=== PATIENT | female | born 1965 ===

== ENCOUNTER 2019-05-18 12:08 | Outpatient (REF) | payer MEDICAID, SELFPAY ==
[2019-05-18 13:46] LABS: PROTEIN 7.5 mg/dL
[2019-05-18 13:49] LABS: COMMENT (LAB VIEW ONLY) 39.51 mg/dL; Microalb ug/mg Crea 13.4 ug/mg Cr
[2019-05-18 14:00] LABS: COMMENT (LAB VIEW ONLY) 40.09 mg/dL; Prot/Crea Ur Ratio 0.18
== END 2019-05-18 12:28 ==
LOC: NCHCN 12:08
PROVIDERS: Visit Provider Nurse Practitioner Family
DX: E11.9 Type 2 diabetes mellitus without complications (principal)
CPT/HCPCS: 82043; 82565; 82570; 84156

== ENCOUNTER 2019-07-23 11:44 | Outpatient (REF) | payer MEDICAID, SELFPAY ==
[2019-07-23 16:39] LABS: Abs Immature Grans 0.02 k/cumm (0.0-0.09); Absolute Basophil Count 0.02 k/cumm (0.0-0.2); Absolute Eosinophil Count 0.08 k/cumm (0.0-0.7); Absolute Lymphocyte Count 0.94 k/cumm (1.2-3.4); Absolute Monocyte Count 0.67 k/cumm (0.11-0.7); Absolute Neutrophil Count 4.33 k/cumm (1.2-6.7); Basophils % 0.3; Eosinophils % 1.3; HCT 41.1 % (36.0-46.0); Immature Grans % 0.3 %; Lymphocytes % 15.5; Mean Corp. HGB Concentration 34.1 g/dL (32.0-36.0); Mean Corpuscular Volume 88.2 fL (80-95); Mean Platelet Volume 10.2 fL (8.0-11.0); Monocytes % 11.1; Neutrophils % 71.5; Platelet Count 318 x1000/uL (130-400); RBC 4.66 m/cumm (4.00-5.20); White Blood Cell Count 6.06 k/cumm (4.4-10.8)
[2019-07-23 16:49] LABS: Iron 42 ug/dL (50-170); Total Iron Binding Capacity 362 ug/dL (250-450); Transferrin Sat 12 % (15-50)
[2019-07-23 16:54] LABS: Hemoglobin A1C 9.7 % (3.8-5.6)
[2019-07-23 17:08] LABS: D-Dimer 496 ng/mlFEU (<500)
[2019-07-23 17:24] LABS: ALT 28 U/L (14-59); AST 18 U/L (15-37); Albumin 3.8 g/dL (3.4-5.0); Alkaline Phosphatase 118 U/L (46-116); Anion Gap 10.5 mmol/L (3-11); BUN 14 mg/dL (7-18); Bilirubin, Total 0.4 mg/dL (0.2-1.0); CO2 25.5 mmol/L (21.0-32.0); CREATININE 0.83 mg/dL (0.55-1.02); Calculated LDL 192 mg/dL (<100); Chloride 100 mmol/L (98-107); Cholesterol 291 mg/dL (<200); Ferritin 26 ng/mL (8-252); Folate 6.5 ng/mL (8.6-20.0); Glucose 258 mg/dL (74-106); HDL Cholesterol 58 mg/dL (40-60); Potassium 4.2 mmol/L (3.5-5.1); Sodium 136 mmol/L (136-145); TSH (W/Ref FT4) 0.79 uIU/mL (0.36-3.74); Total Protein 7.3 g/dL (6.4-8.2); Triglyceride 206 mg/dL (<150); Vitamin B12 204 pg/mL (193-986)
[2019-07-23 19:20] LABS: C-Reactive Protein 0.28 mg/dL (0.0-0.3)
[2019-07-23 22:52] LABS: Rheumatoid Factor <8.6 IU/mL (<12.0)
[2019-07-26 11:37] LABS: HIV-1/2 Ag & Ab Screen Negative (Negative); Hepatitis C Ab w Rflx HCV PCR Negative (Negative)
[2019-07-26 12:47] LABS: Parathyroid Hormone,Intact 103 pg/mL (19-88)
[2019-07-29 08:55] LABS: Free Retinol (Vitamin A) 39.3 mcg/dL (32.5-78.0)
== END 2019-07-23 12:04 ==
LOC: NCHCN 11:44
PROVIDERS: PCP Nurse Practitioner Family; Visit Provider Nurse Practitioner Family
DX: M60.9 Myositis, unspecified (principal); M79.89 Other specified soft tissue disorders; Z79.899 Other long term (current) drug therapy; Z98.84 Bariatric surgery status; Z11.4 Encounter for screening for human immunodeficiency virus [HIV]; Z11.59 Encounter for screening for other viral diseases
CPT/HCPCS: 80053; 80061; 82306; 85652; 86803; 87389; 82607; 82728; 82746; 83036; 83540; 83550; 83970; 84425; 84443; 84590; 85025; 85379; 86140; 86431

== ENCOUNTER 2019-12-02 15:56 | Outpatient (REF) | payer MEDICAID, SELFPAY ==
[2019-12-02 18:20] LABS: HCT 41.2 % (36.0-46.0); HGB 13.8 g/dL (11.2-15.7); MCH 29.6 pg (27.0-33.0); MCHC 33.5 % (32.0-36.0); MCV 88.2 fL (80-95); MPV 10.5 fL (8.0-11.0); Platelet Count 293 10^3/uL (130-400); RBC 4.67 10^6/uL (3.93-5.22); RDW 12.9 % (11.7-14.6); RDW-SD 41.4 fL; WBC 6.52 10^3/uL (4.4-10.8)
[2019-12-02 19:12] LABS: Hemoglobin A1C 9.3 % (<5.7)
[2019-12-02 19:28] LABS: Anion Gap 5.7 mmol/L (3-11); BUN 16 mg/dL (7-18); CO2 28.3 mmol/L (21.0-32.0); CREATININE 0.77 mg/dL (0.55-1.02); Calcium 9.2 mg/dL (8.5-10.1); Chloride 101 mmol/L (98-107); Glucose 316 mg/dL (74-106); Potassium 4.7 mmol/L (3.5-5.1); Sodium 135 mmol/L (136-145)
[2019-12-02 19:40] LABS: Vitamin D 25 Total 22.8 ng/ml (30-100)
== END 2019-12-02 16:16 ==
LOC: NCHCN 15:56
PROVIDERS: PCP Nurse Practitioner Family; Visit Provider Nurse Practitioner Family
DX: Z98.84 Bariatric surgery status (principal); E11.9 Type 2 diabetes mellitus without complications
CPT/HCPCS: 80048; 82306; 85027; 83036